=== PATIENT | female | born 1975 | race Caucasian/White ===

== ENCOUNTER 2017-02-19 18:28 | Emergency (ER) | payer BC ==
--- NOTE | ~2017-02-19 | ER ---
PATIENT'S NAME: [facility] AGE: 41 Y [address] ROOM: [place] [address] LOCATION: [facility] ADMIT DATE: 02/19/2017 ER/Outpatient Report DISCHARGE DATE: 02/19/2017 FAMILY PHYSICIAN: Physician, Unknown ATTENDING PHYSICIAN: Cassandra Castellanos Time of Arrival: 1828 hours. Time of Exam: 1828 hours. CHIEF COMPLAINT: Left lower quadrant abdominal pain. HISTORY OF PRESENT ILLNESS: The patient states approximately 1 hour prior to arrival she began having left lower quadrant abdominal pain that radiated to her back. She states she has felt chilled. She is nauseated. She did feel like she needed to go to the bathroom. She had urine urgency, but did not have any pain with urination, did not notice any blood. She did have a bowel movement also at that time of a small amount, but did not notice any blood at that time either. She describes the pain as being cramping. ALLERGIES: NO KNOWN ALLERGIES. MEDICATIONS: No current medications. PAST MEDICAL HISTORY: Benign. SURGERIES: Carpal tunnel. Last menstrual period was 02/03/2017. SOCIAL HISTORY: She works at [employer]. Denies use of tobacco, drugs, or alcohol. Reports Jesica Willis as her primary provider. REVIEW OF SYSTEMS: All negative other than those mentioned in the HPI. She arrived per [facility]. She had an IV in her right hand. They had given her Zofran 4 mg IV and a total of 50 mcg of fentanyl. PHYSICAL EXAMINATION: PATIENT'S NAME: [facility] AGE: 41 Y [address] ROOM: [place] [address] LOCATION: [facility] ADMIT DATE: 02/19/2017 ER/Outpatient Report DISCHARGE DATE: 02/19/2017 FAMILY PHYSICIAN: Physician, Unknown ATTENDING PHYSICIAN: Cassandra Castellanos VITAL SIGNS: Blood pressure is 125/81, pulse of 93, respirations 16, temperature of 97.1 tympanic, and O2 saturation was 97% on room air. GENERAL: She is awake, alert, and oriented x4. SKIN: [place], warm, and dry. RESPIRATIONS: Even and nonlabored. Lung sounds were clear throughout. HEART: Regular rate and rhythm. ABDOMEN: Soft, nondistended. Bowel sounds are present. No increased pain with deep palpation. EMERGENCY DEPARTMENT COURSE: The patient was able to ambulate to the bathroom and a clean-catch UA sample was obtained. Lab work was drawn. CBC shows a white count of 12.2. Chem panel is within normal limits. Clean-catch UA showed micro white count of 5- 10 with many bacteria. The patient states she was feeling better after urinating. IMPRESSION: Urinary tract infection. PLAN: Home, rest, fluids. Tylenol or ibuprofen for discomfort. A prescription was written for Bactrim DS. She is to see her primary provider in 2-3 days. If her symptoms persist or worsen, she is welcome to return to the ER as needed. Her son was here to give her ride home. DAVID AREVALO APRN FOR [facility] GUTIERREZ/inocente /[id number] d: 02/20/17 0005 t: 02/23/17 1414, OUTPATIENT REPORT
[2017-02-19 18:54] LABS: BASOPHIL % 0.3 %; EOSINOPHIL # 0.1 K/uL (0.0-0.5); EOSINOPHIL % 0.7 %; HEMATOCRIT 40.7 % (33.0-46.0); HEMOGLOBIN 13.5 g/dL (10.0-15.0); IMMATURE GRANULOCYTE % 0.2 %; LYMPHOCYTE # 3.2 K/uL (0.8-4.0); LYMPHOCYTE % 25.8 %; MCH 29.5 pg (27.0-34.0); MCHC 33.2 gm/dL (32.0-36.5); MCV 89.1 fl (83.0-98.0); MONOCYTE # 0.8 K/uL (0.0-1.0); MONOCYTE % 6.8 %; MPV 10.5 fl (9.4-12.4); NEUTROPHIL # (ANC) 8.1 K/uL (1.8-7.8); NEUTROPHIL % 66.2 %; NRBC % 0 /100WBC (0-0.00); PLATELET COUNT 244 K/uL (150-450); RBC 4.57 M/uL (3.50-5.50); RDW-CV 12.4 % (11.9-14.6); WBC 12.2 K/uL (4.0-11.0)
[2017-02-19 18:55] LABS: BILIRUBIN URINE NEGATIVE (NEGATIVE); BLOOD URINE 150 /UL (NEGATIVE); COLOR URINE YELLOW (YELLOW); GLUCOSE URINE NEGATIVE (NEGATIVE); KETONE URINE NEGATIVE (NEGATIVE); LEUKOCYTES URINE 25 /UL (NEGATIVE); NITRITE URINE NEGATIVE (NEGATIVE); PROTEIN URINE 15 mg/dL (NEGATIVE); SPEC GRAVITY URINE 1.025 (1.003-1.035); TURBIDITY URINE 1+ (CLEAR); UROBILINOGEN URINE NORMAL (NORMAL)
[2017-02-19 19:10] LABS: BACTERIA URINE MANY (NEGATIVE); MUCUS URINE 1+ (NEGATIVE); RBC URINE 0-2 #/HPF (NEGATIVE)
[2017-02-19 19:12] LABS: ALBUMIN 3.9 gm/dL (3.5-5.0); ALK PHOS 98 IU/L (33-138); ALT 25 IU/L (12-78); ANION GAP 12.7 (10.0-19.0); AST 19 IU/L (10-40); BLOOD UREA NITROGEN 9 mg/dL (6-24); CHLORIDE 104 mMol/L (96-110); CO2 27 mMol/L (22-32); CREATININE 0.7 mg/dL (0.5-1.1); ESTIMATED GFR (MDRD EQUATION) > 60; POTASSIUM 3.7 mMol/L (3.7-5.1); SODIUM 140 mMol/L (135-145); TOTAL BILIRUBIN 0.4 mg/dL (0.0-1.5); TOTAL PROTEIN 7.8 g/dL (6.0-8.4)
== END 2017-02-19 19:28 | disposition disaster alternative care site (69) ==
LOC: GMED 18:28
PROVIDERS: Nurse Practitioner Family
DX: N39.0 Urinary tract infection, site not specified (principal)

== ENCOUNTER → 2017-02-19 | Outpatient (CLI) | payer BC | END | disposition disaster alternative care site (69) | LOC: GAMB 18:06 | DX: R10.32 Left lower quadrant pain (principal); R39.198 Other difficulties with micturition | CPT/HCPCS: A0425; A0427; J2405; J3010 ==